=== PATIENT | male | born 1945 | race Caucasian/White ===

== ENCOUNTER → 2017-03-09 | Outpatient (CLI) | payer OTHER ==
[~2017-03-09] MED LIST: ASPIRIN E.C.81 M1 PO; CADUET PO; CELEBREX200 MG PO; Flonase BOTH NARES; Micardis HCT 80 mg/1 PO; NIASPAN,SLO-NI500 MG PO; Robitussin AC,Tussi- PO; THERAGRAN1 TABLET PO; TOPROL XL100 MG PO; ZITHROMAX500 MG PO
== END | disposition home or self-care (01) ==
LOC: AMB 13:00
PROC: 0HBHXZZ Excision of Right Upper Leg Skin, External Approach (ICD-10-PCS; principal; 2017-03-09)
DX: L72.0 Epidermal cyst (principal)
CPT/HCPCS: 88304